=== PATIENT | male | born 1970 | race Hispanic/Latino ===

== ENCOUNTER 2023-04-09 19:30 | Emergency (ER) | payer OTHER, SELFPAY ==
[2023-04-09] MEDS ORDERED: Boostrix 0.5 ML (Tdap) VIAL (>/=7 yrs of age) ONE (21:29)
[2023-04-09] MEDS ORDERED: Bacitracin 1 PK ONE (21:29)
[2023-04-09] MEDS ORDERED: Triple Antibiotic Oint 1 GM Packet ONE (21:32)
== END 2023-04-09 21:46 | disposition home or self-care (01) ==
LOC: CSHERS 19:30
DX: S81.852A Open bite, left lower leg, initial encounter (principal); W54.0XXA Bitten by dog, initial encounter
CPT/HCPCS: 90471; 90715; 99283